=== PATIENT | female | born 1945 | race African-American/Black ===

== ENCOUNTER 2018-11-20 06:03 | Observation (INO) | payer BC, MEDICARE ==
[2018-11-19 13:22] LABS: BASOPHILS # (AUTO) 0.1 (0.0-0.1); BASOPHILS % 0.7 % (0.0-1.0); EOSINOPHILS # (AUTO) 0.2 (0.0-0.4); EOSINOPHILS % 2.7 % (0.0-6.0); HEMATOCRIT 39.1 % (34.2-44.1); HEMOGLOBIN 12.6 g/dL (12.0-16.0); LYMPHOCYTES # (AUTO) 2.1 (1.0-3.2); LYMPHOCYTES % 28.9 % (18.0-39.1); MEAN CORPUSCULAR HEMOGLOBIN 27.8 pg (28-32); MEAN CORPUSCULAR HGB CONC 32.2 g/dL (31-35); MEAN CORPUSCULAR VOLUME 86.3 fL (81-99); MONOCYTES # (AUTO) 0.9 (0.2-0.8); MONOCYTES % 12.1 % (4.4-11.3); NEUTROPHILS # (AUTO) 4.1 (2.1-6.9); NEUTROPHILS % 55.3 % (38.7-80.0); PLATELET COUNT 278 x10e3/uL (140-360); RED BLOOD COUNT 4.53 x10e6/uL (3.6-5.1); RED CELL DISTRIBUTION WIDTH 14.6 % (11.7-14.4)
[2018-11-19 13:40] LABS: ANION GAP 12.7 mmol/L (8-16); CALCIUM 9.7 mg/dL (8.4-10.2); CREATININE, SERUM 0.93 mg/dL (0.57-1.11); POTASSIUM 3.7 mmol/L (3.5-5.1)
--- NOTE | 2018-11-19 14:08 | Diagnostic Imaging Report ---
EXAMINATION: CHEST 2 VIEWS INDICATION: Pre-operative COMPARISON: None FINDINGS: TUBES and LINES: None. LUNGS: The lung volumes are normal. No focal consolidation or pulmonary edema. PLEURA: No pleural effusion or pneumothorax. HEART AND MEDIASTINUM: The cardiomediastinal silhouette is normal in size and contour. BONES AND SOFT TISSUES: No acute fracture or dislocation. Mild degenerative changes of the visualized spine. UPPER ABDOMEN: No free air under the diaphragm. IMPRESSION: No focal pneumonia or pulmonary edema. Signed by: Ilana Barnes MD on 11/19/2018 2:05 PM
[~2018-11-20] VITALS: Ht 160 cm; Wt 99.8 kg
[~2018-11-20 06:03] MED LIST: AMLODIPINE BESY10 MG PO; CRESTOR5 MG PO; FUROSEMIDE40 MG PO; KLOR-CON 1010 MEQ PO; LABETALOL HCL100 MG PO; LASIX40 MG PO; LOSARTAN POTAS100 MG PO; METFORMIN HCL500 MG PO; OMEPRAZOLE40 MG PO
[2018-11-20] MEDS ORDERED: TRANEXAMIC ACID 1,000 MG/10 ML ML ONE (06:13)
[2018-11-20] MEDS ORDERED: SODIUM CHLORIDE 0.9% 500ML 500 ML ONE (06:13)
[2018-11-20] MEDS ORDERED: VANCOMYCIN HCL 1,000 MG ONE (06:13)
[2018-11-20] MEDS ORDERED: BACITRACIN 50,000 UNIT VIAL ONE (06:14)
--- OUTSIDE RECORDS SUMMARY | 2018-11-20 06:33 | XMS REPORT ---
[facility] Address Unknown Phone Unavailable Care Team Providers Care Tube Balancer Name Role Phone LANDON KARTIK Unavailable Unavailable Payers Payer Name Policy Type Policy Number Effective Date Expiration Date Problems This patient has no known problems. Allergies, Adverse Reactions, Alerts Allergy Name Allergy Type Status Severity Reaction(s) Onset Date Inactive Date Treating Clinician Comments Penicillins DA Active MO 2018-10-20 00:00:00 Medications This patient has no known medications. Results Test Description Test Time Test Comments Text Results Atomic Results Result Comments CHEST 2 VIEWS 2018-11-19 14:04:00 [place] [address] Patient Name: AXEL JULIAN MR #: [id number] : 1945 Age/Sex: 73/F Req #: [id number] Adm Physician: Ordered by: KARTIK NAVARRETE MD Report #: [id number] Location: OR Room/Bed: Procedure: [id number] DX/CHEST 2 VIEWS Exam Date: 11/19/18 Exam Time: 1320 REPORT STATUS: Signed EXAMINATION: CHEST 2 VIEWS INDICATION: Pre-operative COMPARISON: None FINDINGS: TUBES and LINES: None. LUNGS: The lung volumes are normal. No focal consolidation or pulmonary edema. PLEURA: No pleural effusion or pneumothorax. HEART AND MEDIASTINUM: The cardiomediastinal silhouette is normal in size and contour. BONES AND SOFT TISSUES: No acute fracture or dislocation. Mild degenerative changes of the visualized spine. UPPER ABDOMEN: No free air under the diaphragm. IMPRESSION: No focal pneumonia or pulmonary edema. Signed by: Shruthi Anne MD on 11/19/2018 2:05 PM Dictated By: SHRUTHI ANNE MD 04 Transcribed By: JUAN on 11/19/181404 COPY TO: KARTIK NAVARRETE MD - XR CHEST 1 V 2018-10-20 21:51:00 Name: AXEL JULIAN [employer] [facility] : 1945 Age/S:73 /F [address] [place] [address] Unit#:[id number] Loc: [place] [address] Phys: Daniel Sparks MD Dis Date: PHONE #: [phone] Status: REG ER FAX #: [phone] Exam Date: 10/20/2018 Reason: abd pain EXAMS: CPT CODE: [id number] XR CHEST 1 V 03095 HISTORY: Vomiting. COMPARISON: None available. No acute infiltrates, effusion or congestion is noted. Suboptimal inspiration with dependent changes. Mild cardiomegaly. IMPRESSION: No acute infiltrates, effusion or congestion. at 2151 Reported and signed by: Amrik Candelaria M.D. CC: Daniel Sparks MD Technologist: FACUNDO STALLINGS CT Trnscrpt Data: 10/20/2018 (2150) [email or web address] Orig Print D/T: S: 10/20/2018 (2153) PAGE 1 Signed Report - CT ABD PELVIS W/CONT 2018-10-20 21:50:00 Name: JAMESAXEL [employer] [facility] : 1945 Age/S: 73 / F [facility] [place][note 2][address] [facility] Unit #: [id number] Loc: [place] [address] Phys: Daniel Sparks MD Acct: [id number] Dis Date: Status: REG ER PHONE #: [phone] Exam Date: 10/20/20182129 FAX #: [phone] Reason: abd pain/distension EXAMS: CPT CODE: [id number] CT ABD PELVIS W/CONT 18684 HISTORY: Abdominal pain and distention and vomiting. COMPARISON: None available. CT abdomen and pelvis with IV contrast: 100 mL of Isovue-370. Automated exposure control. CT of abdomen: The lung bases are clear. Dependent changes. The liver is enhancing homogeneously. Patient is post cholecystectomy. Areas of fatty infiltration. The liver is measuring 17.8 cm in length. The spleen is not enlarged. Accessory spleen. The stomach distended incompletely however it is within normal limits. Pancreas is enhancing homogeneously. Unremarkable adrenals. Kidneys are free from hydroureteronephrosis. Homogeneous enhancement. Bilateral excretion. No pathologic adenopathy. Well-opacified abdominal and pelvic vasculature with mild atherosclerotic change. No bowel obstruction. Mild fluid distention of the small bowel is nonspecific finding. Large bowel is unremarkable. No CT pelvis: Appendix is now visible with certa inty but no inflammatory changes. Calcified lymph nodes in the both lower quadrant. Mild sigmoid diverticulosis without diverticulitis. Urinary bladder is within normal limits. Patient is post hysterectomy. Phleboliths. No free fluid or free air or abscess. The subcutaneous tissues and musculature are normal in appearance. No lytic or blastic lesions noted within the bony skeleton. DJD. IMPRESSION: Mild small bowel distention proximally without inflammatory change. This suggests ileus. This is not an obstructive pattern. Mild sigmoid diverticulosis without diverticulitis. Appendix is not visible with certainty but no inflammation. PAGE 1 Signed Report (CONTINUED) [facility] 1945 Age/S: 73 / F [address] [facility] Unit #: [id number] Loc: [place] [address] Phys: Daniel Sparks MD Acct: [id number] Dis Date: Status: REG ER PHONE #: [phone] Exam Date: 10/20/20182129 FAX #: [phone] Reason: abd pain/distension EXAMS: CPT CODE: [id number] CT ABD PELVIS W/CONT 38874 <Continued> No hydroureteronephrosis with unremarkable urinary bladder. No free fluid or free air or abscess. at 2150 Reported and signed by: Amrik Candelaria M.D. CC: Daniel Sparks MD Technologist:FACUNDO HURD CTDI: DLP: Trnscb Date/Time: 10/20/2018 (2149) [email or web address] Orig Print D/T: S: 10/20/2018 (2152) PAGE 2 Signed Report B-TYPE NATRIURETIC PEPTIDE 2018-10-20 21:15:00 B-TYPE NATRIURETIC PEPTIDE (test code=BNP) 39.5 pg/mL 0-100 COMPREHENSIVE METABOLIC [id number] 21:14:00* Test Item Value Reference Range Comments SODIUM (test code=NA) 140 mmol/L 136-145 POTASSIUM (test code=K) 3.7 mmol/L 3.5-5.1 CHLORIDE (test code=CL) 103 mmol/L 101-109 CARBON DIOXIDE (test code=CO2) 29.4 mmol/L 21-32 ANION GAP (test code=GAP) 11 mmol/L 10-20 GLUCOSE (test code=GLU) 144 mg/dL 74-106 BLOOD UREA NITROGEN (test code=BUN) 10 mg/dL 3-21 CREATININE (test code=CREAT) 1.04 mg/dL 0.55-1.3 BUN/CREATININE RATIO (test code=BUN/CREA) 9.6 10-20 TOTAL PROTEIN (test code=PROT) 7.3 g/dL 6.5-8.4 ALBUMIN (test code=ALB) 3.5 g/dL 3.4-4.8 GLOBULIN (test code=GLOB) 3.8 G/DL 1-10 ALBUMIN/GLOBULIN RATIO (test code=A/G) 0.92 RATIO 0.75-1.50 CALCIUM (test code=CA) 8.2 mg/dL 8.4-10.2 BILIRUBIN TOTAL (test code=BILT) 0.40 mg/dL 0.0-1.0 SGOT/AST (test code=AST) 40 U/L 6-32 SGPT/ALT (test code=ALT) 49 U/L 12-78 Note: Change in REFERENCE RANGE due to new reagent method. ALKALINE PHOSPHATASE TOTAL (test code=ALKP) 60 U/L 38-126 [id number] 21:14:00* Test Item Value Reference Range Comments LIPASE (test code=LIP) 118 U/L 128-270 [id number] 21:14:00* Test Item Value Reference Range Comments TROPONIN-I (test code=TROPI) <0.015 ng/mL 0.00-0.056 URINALYSIS [id number] 21:04:00* Test Item Value Reference Range Comments UA COLOR (test code=COLU) YELLOW YELLOW UA APPEARANCE (test code=APPU) CLEAR CLEAR UA GLUCOSE DIPSTICK (test code=DGLUU) norm mg/dL NEGATIVE UA BILIRUBIN DIPSTICK (test code=BILU) NEGATIVE mg/dL NEGATIVE UA KETONE DIPSTICK (test code=KETU) neg mg/dL NEGATIVE UA SPECIFIC GRAVITY (test code=SGU) 1.015 1.001-1.035 UA BLOOD DIPSTICK (test code=GARETH) neg Servando/uL NEGATIVE UA PH DIPSTICK (test code=KRYSTEN) 6.0 5.0-8.0 UA PROTEIN DIPSTICK (test code=PROU) 30 (1+) mg/dL Neg-15 UA UROBILINIOGEN DIPSTICK (test code=URO) norm mg/dL 0.0-0.2 UA NITRITE DIPSTICK (test code=YAMILKA) NEGATIVE NEGATIVE UA LEUKOCYTE ESTERASE DIPSTICK (test code=LEUU) NEGATIVE uL NEGATIVE UA WBC (test code=WBCU) 0-5 per HPF 0-5 UA RBC (test code=RBCU) NONE SEEN per HPF 0-5 UA EPITHELIAL CELLS (test code=EPIU) Few (2-5/hpf) per HPF Few UA BACTERIA (test code=BACU) TRACE per HPF NONE UA MUCUS (test code=MUCU) FEW per LPF NONE-FEW URINALYSIS W/O [id number] 21:04:00* Test Item Value Reference Range Comments UA LEUKOCYTE ESTERASE W REFLEX (test code=LEUUR) NEGATIVE NEGATIVE URINALYSIS [id number] 21:01:00* Test Item Value Reference Range Comments UA COLOR (test code=COLU) YELLOW YELLOW UA APPEARANCE (test code=APPU) CLEAR CLEAR UA GLUCOSE DIPSTICK (test code=DGLUU) norm mg/dL NEGATIVE UA BILIRUBIN DIPSTICK (test code=BILU) NEGATIVE mg/dL NEGATIVE UA KETONE DIPSTICK (test code=KETU) neg mg/dL NEGATIVE UA SPECIFIC GRAVITY (test code=SGU) 1.015 1.001-1.035 UA BLOOD DIPSTICK (test code=GARETH) neg Servando/uL NEGATIVE UA PH DIPSTICK (test code=KRYSTEN) 6.0 5.0-8.0 UA PROTEIN DIPSTICK (test code=PROU) 30 (1+) mg/dL Neg-15 UA UROBILINIOGEN DIPSTICK (test code=URO) norm mg/dL 0.0-0.2 UA NITRITE DIPSTICK (test code=YAMILKA) NEGATIVE NEGATIVE UA LEUKOCYTE ESTERASE DIPSTICK (test code=LEUU) uL NEGATIVE UA WBC (test code=WBCU) per HPF 0-5 UA RBC (test code=RBCU) per HPF 0-5 UA EPITHELIAL CELLS (test code=EPIU) per HPF Few UA BACTERIA (test code=BACU) per HPF NONE URINALYSIS W/O [id number] 21:01:00* Test Item Value Reference Range Comments UA LEUKOCYTE ESTERASE W REFLEX (test code=LEUUR) NEGATIVE URINALYSIS [id number] 21:01:00* Test Item Value Reference Range Comments UA COLOR (test code=COLU) YELLOW YELLOW UA APPEARANCE (test code=APPU) CLEAR CLEAR UA GLUCOSE DIPSTICK (test code=DGLUU) norm mg/dL NEGATIVE UA BILIRUBIN DIPSTICK (test code=BILU) NEGATIVE mg/dL NEGATIVE UA KETONE DIPSTICK (test code=KETU) neg mg/dL NEGATIVE UA SPECIFIC GRAVITY (test code=SGU) 1.015 1.001-1.035 UA BLOOD DIPSTICK (test code=GARETH) neg Servando/uL NEGATIVE UA PH DIPSTICK (test code=KRYSTEN) 6.0 5.0-8.0 UA PROTEIN DIPSTICK (test code=PROU) 30 (1+) mg/dL Neg-15 UA UROBILINIOGEN DIPSTICK (test code=URO) norm mg/dL 0.0-0.2 UA NITRITE DIPSTICK (test code=YAMILKA) NEGATIVE NEGATIVE UA LEUKOCYTE ESTERASE DIPSTICK (test code=LEUU) uL NEGATIVE UA WBC (test code=WBCU) per HPF 0-5 UA RBC (test code=RBCU) per HPF 0-5 UA EPITHELIAL CELLS (test code=EPIU) per HPF Few UA BACTERIA (test code=BACU) per HPF NONE URINALYSIS W/O [id number] 21:01:00* Test Item Value Reference Range Comments UA LEUKOCYTE ESTERASE W REFLEX (test code=LEUUR) NEGATIVE CBC W/AUTO [id number] 20:57:00* Test Item Value Reference Range Comments WHITE BLOOD CELL (test code=WBC) 12.4 K/mm3 4.5-12.5 RED BLOOD CELL (test code=RBC) 4.89 mill/mm3 3.7-5.2 HEMOGLOBIN (test code=HGB) 13.3 gram/dL 11.5-15.5 HEMATOCRIT (test code=HCT) 41.8 % 36.0-46.0 MEAN CELL VOLUME (test code=MCV) 85.5 fL 80-98 MEAN CELL HGB (test code=MCH) 27.2 picogram 27.0-33.0 MEAN CELL HGB CONCETRATION (test code=MCHC) 31.8 gram/dL 33.0-36.0 RED CELL DISTRIBUTION WIDTH (test code=RDW) 14.1 % 11.6-16.2 RED CELL DISTRIBUTION WIDTH SD (test code=RDW-SD) 44.5 fL 37.0-51.0 PLATELET COUNT (test code=PLT) 300 K/mm3 150-450 MEAN PLATELET VOLUME (test code=MPV) 10.0 fL 6.7-11.0 NEUTROPHIL % (test code=NT%) 79.5 % 39.0-69.0 LYMPHOCYTE % (test code=LY%) 11.1 % 25.0-55.0 MONOCYTE % (test code=MO%) 7.1 % 0.0-10.0 EOSINOPHIL % (test code=EO%) 1.9 % 0.0-5.0 BASOPHIL % (test code=BA%) 0.2 % 0.0-1.0 NEUTROPHIL # (test code=NT#) 9.88 K/mm3 1.8-7.7 LYMPHOCYTE # (test code=LY#) 1.38 K/mm3 1.0-5.0 MONOCYTE # (test code=MO#) 0.88 K/mm3 0-0.8 EOSINOPHIL # (test code=EO#) 0.24 K/mm3 0.0-0.5 BASOPHIL # (test code=BA#) 0.03 K/mm3 0.0-0.2 MANUAL DIFF REQUIRED (test code=MDIFF) NO SCR MAMM BILATERAL MILANA CAD [id number] 15:05:19 - SCR MAMM BILATERAL MILANA CAD DIGITALBILATERAL DIGITAL SCREENING MAMMOGRAM 3D/2D WITH CAD: 08/15/2018CLINICAL: Asymptomatic. Digital breast tomosynthesis was performed in addition to routine CC and MLO views. Current mammographic images were evaluated by either a [employer] M-Vu or a [employer] ImageChecker CAD (computer aided detection system). Comparison is made to exams dated 08/10/2017 mammogram, mammogram, and 07/14/2015 mammogram - [facility]-. There are scattered fibroglandular tissues in both breasts. No suspicious mass, archi tectural distortion, malignant type calcification, or lymph node abnormality det ected. Breast architecture is stable compared to prior exams.IMPRESSION: NEGATI VEThere is no mammographic evidence of malignancy. Resume annual screening mammo graphy in one year. Sly Montanez M.D. ss/penrad:08/15/2018 15:05: 19 Tractor Operator Helper: Ana Julian , [facility]-letter sent: BIRADS 1-2 Normal Mammogram BI-RADS: 1 Negative
[2018-11-20] MEDS ORDERED: GABAPENTIN 300 MG CAP ONE (07:04)
[2018-11-20] MEDS ORDERED: CELECOXIB 200 MG CAP ONE (07:04)
[2018-11-20] MEDS ORDERED: DEXAMETHASONE SOD PHOS 10 MG/1 ML VIAL ONE (07:04)
[2018-11-20] MEDS ORDERED: VANCOMYCIN 1GM/NS 250 ML 250 ML ONE (07:04)
[2018-11-20] MEDS ORDERED: ROPIVACAINE 246.25 MG, EPINEPHRINE HCL 1:1000 1ML 0.5 MG, CLONIDINE HCL 0.08 MG, KETORO... INJ ONE ×5 (07:30)
[2018-11-20] MEDS: SODIUM CHLORIDE 0.9% 1000ML 1,000 ML IV SCH ×2 (10:40→18:21)
[2018-11-20] MEDS ORDERED: PROMETHAZINE HCL (IM) 25 MG/ML VIAL IM PRN (10:45)
[2018-11-20] MEDS ORDERED: ACETAMINOPHEN 650 MG SUPP PR PRN (10:45)
[2018-11-20] MEDS ORDERED: HYDROCODONE/APAP 7.5MG-325MG 1 EA TAB PO PRN (10:45)
[2018-11-20] MEDS ORDERED: DOCUSATE SODIUM 100 MG CAP PO PRN (10:45)
[2018-11-20] MEDS ORDERED: KETOROLAC TROMETHAMINE 30 MG/ML VIAL IV PRN (10:45)
[2018-11-20] MEDS ORDERED: ONDANSETRON HCL INJ 2MG/ML 2ML 2 MG/ML VIAL IV PRN (10:45)
[2018-11-20] MEDS ORDERED: DIPHENHYDRAMINE HCL INJ 50 MG/ML VIAL IM/IV PRN (10:45)
[2018-11-20] MEDS ORDERED: HYDROMORPHONE 2MG/ML 2 MG/ML ML ONE (11:23)
[2018-11-20] MEDS: ACETAMINOPHEN 1000 MG/100 ML IV SCH ×3 (12:00→23:21)
--- NOTE | 2018-11-20 12:19 | Diagnostic Imaging Report ---
Knee radiograph, 2 views. History: Findings: Postoperative findings of right knee arthroplasty with prosthetic components in anatomic alignment. No fracture. Overlying subcutaneous emphysema and surgical skin caleb are present. Small joint effusion. IMPRESSION: Status post right knee replacement in anatomic position. Signed by: Ilana Barnes MD on 11/20/2018 12:16 PM
--- NOTE | 2018-11-20 13:16 | Operative Report ---
DATE OF PROCEDURE: 11/20/2018 SURGEON: Sanjay Goldman MD REFRIGERATION OPERATOR: Noah Soto PA-C. PREOPERATIVE DIAGNOSIS: Osteoarthritis right knee. POSTOPERATIVE DIAGNOSIS: Osteoarthritis right knee. PROCEDURE: Right total knee arthroplasty * added complexity secondary to BMI of 40. INDICATIONS: The patient is a 73-year-old lady, who has advanced osteoarthritis of her right knee. She has failed conservative management and would like to proceed with a right total knee replacement. The risks and benefits have been explained. The added potential for problems due to her body mass index of 40 was explained. She states she understands and wishes to proceed. PROCEDURE IN DETAIL: The patient was brought to the operating room and placed under general anesthetic. She received prophylactic antibiotics, a regional block and tranexamic acid in the holding area. Her right lower extremity was prepped and draped in a sterile manner. A preoperative time-out was performed. The extremity was exsanguinated and a proximal tourniquet was inflated to 300 mmHg. An anterior approach with a medial parapatellar arthrotomy was performed. Clear synovial fluid was removed from the joint. A slightly more extensile incision was necessary. Dense subcutaneous adipose tissue was encountered. Soft tissue releases were performed to bring the knee up into flexion with the patella everted. This was quite challenging due to the altered surgical field. Meniscal remnants and marginal osteophytes were removed. The anterior cruciate ligament was removed. A [employer] knee system was used. An extramedullary cutting guide was used to resect the proximal tibia. The tibial base plate was a size #4. The central fin punch was impacted and attention was directed towards the distal femur. An intramedullary cutting guide was used to resect the distal femur in 6 degrees of valgus and rotation referencing off a combination of landmarks including Whitesides line, the epicondylar axis and the posterior condyles. The femoral component was sized at a #6 component. Anterior and posterior cuts were made. Trial reduction was performed. A 9 mm ultracongruent tibial insert provided appropriate soft tissue balancing in flexion and extension. The patella was resurfaced with a 29 mm x 7.5 mm patellar button. The thickness of the patella was checked before and after and was right around 18 mm. Patellar tracking was concentric. The trial implants were then all removed. The knee was thoroughly irrigated with a shower tip pulsatile lavage. A 100 mL premixed pericapsular ERIC injection was placed into the surrounding soft tissue. The knee was further irrigated and the components were cemented into place using a single mix of Palacos cement preloaded with antibiotics. Care was taken to remove extravasated cement. It was very difficult to reach around lateral compartment. The knee was further irrigated while the cement cured. 500 mg of vancomycin powder was then placed into the joint. The arthrotomy was closed with interrupted #1 Ethibond. The skin was closed with subcuticular Vicryl and caleb. A sterile Aquacel bandage and an Elver wrap were applied. She was extubated and transported to the recovery room in stable condition. Blood loss was minimal. All needle and sponge counts were correct. Sanjay Goldman MD DR/DAVID /[id number]
[2018-11-20 13:52] VITALS: BP 128/74
[2018-11-20] MEDS ORDERED: LIDOCAINE 2% /EPINEPHRINE 20 ML SDV INJ ONE (14:53)
[2018-11-20] MEDS ORDERED: ROPIVACAINE 0.5% 5 MG/ML 30 ML SDV ONE (14:53)
[2018-11-20] MEDS ORDERED: ROCURONIUM BROMIDE 10 MG/ML 5ML VIAL ONE (15:00)
[2018-11-20] MEDS ORDERED: GLYCOPYRROLATE INJ 1MG/ 5 ML SYR ONE (15:00)
[2018-11-20] MEDS ORDERED: PROPOFOL IV EMULSION 10 MG/ML 20 ML VIAL ONE (15:00)
[2018-11-20] MEDS ORDERED: NEOSTIGMINE 5 MG/5ML SYR ONE (15:00)
[2018-11-20] MEDS ORDERED: DEXAMETHASONE SOD PHOS INJ 4 MG/ML VIAL ONE (15:00)
[2018-11-20] MEDS ORDERED: ACETAMINOPHEN 1000 MG/100 ML IV ONE (15:00)
[2018-11-20] MEDS ORDERED: LIDOCAINE HCL 2% LOCAL INJ 5 ML SDV VIAL INJ ONE (15:00)
[2018-11-20] MEDS ORDERED: DESFLURANE 240 ML BTL INH ONE (15:00)
[2018-11-20 15:20] VITALS: BP 128/74
[2018-11-20 16:57] VITALS: BP 128/74
[2018-11-20 17:06] VITALS: BP 111/53
[2018-11-20] MEDS: CELECOXIB 100 MG CAP PO SCH (17:24)
[2018-11-20] MEDS: ASPIRIN 325 MG TAB PO SCH (17:24)
[2018-11-20] MEDS ORDERED: FENTANYL CITRATE/PF 100MCG/2 ML INJ ONE (17:53)
[2018-11-20] MEDS ORDERED: MIDAZOLAM HCL 2 MG/2 ML VIAL ONE (17:53)
[2018-11-20] MEDS: VANCOMYCIN 1GM/NS 250 ML 250 ML IV SCH (18:21)
--- NOTE | 2018-11-20 18:32 | Consultation ---
DATE OF CONSULTATION: 11/20/2018 REASON FOR CONSULTATION: Medical management. HISTORY OF PRESENT ILLNESS: This is a 73-year-old woman, who underwent successful right total knee replacement today. Surgery was performed by Dr. Sanjay Goldman. The patient voiced no complaints. The patient did participate in physical therapy postoperatively, but had an episode of lightheadedness, dizziness and thus therapy was discontinued. The patient had blood work done on November 19, 2018, she was found to have a hemoglobin of 12.6 g/dL. On November 19, 2018, patient had a BUN, creatinine of 9 and 0.93 respectively. REVIEW OF SYSTEMS: GENERAL: Weight is stable. No fever or chills. HEENT: No headaches. No vision changes. CARDIOVASCULAR: No chest pain. No shortness of breath or cough. GI: No nausea, vomiting, or constipation. : No UTI or overactive bladder symptoms. Pabon catheter has been removed. NEUROMUSCULAR: States the pain in her right knee is well control. ALLERGIES: PENICILLIN. PAST SURGICAL HISTORY: 1. Cholecystectomy. 2. Right knee replacement today. FAMILY HISTORY: Noncontributory. SOCIAL HISTORY: This woman is , lives with her . No history of tobacco or alcohol use. PAST MEDICAL HISTORY: 1. Hypertensive heart disease. 2. Hyperlipidemia. 3. Type 2 diagnosis. 4. Obesity. 5. GERD. MEDICATIONS: 1. Amlodipine 10 mg at bedtime. 2. Furosemide 40 mg daily. 3. Labetalol 100 mg b.i.d. 4. Losartan 100 mg daily. 5. Metformin 500 mg b.i.d. 6. Omeprazole 20 mg daily. 7. Potassium chloride 10 mEq daily. 8. Rosuvastatin 5 mg at bedtime. PHYSICAL EXAMINATION: GENERAL: She is awake, alert, fluent, distress free, pleasant, cooperative with exam. VITAL SIGNS: Blood pressure is 128/74, pulse 58, respiratory rate 16, temperature 95.8, oxygen saturation 94% on 2 L of oxygen. Height 5 feet 3 inches, weighs 220 pounds, BMI 39. INTEGUMENT: Skin is warm and dry. No pallor, jaundice or diaphoresis. HEENT: Anicteric sclerae. Moist mucous membranes. NECK: Supple. CARDIOVASCULAR: Distant heart sounds. Regular rate and rhythm. LUNGS: No rales. No rhonchi. ABDOMEN: Obese, benign. EXTREMITIES: The patient's right knee is currently dressed. No edema in legs. NEUROLOGIC: Intact. DIAGNOSES: 1. Status post right total knee replacement. 2. Hypertensive heart disease. 3. Type 2 diabetes. 4. Obesity, BMI of 39. PLAN: 1. Mobilize therapy. 2. Encourage incentive spirometer use to prevent atelectasis. 3. Blood pressure control. 4. Blood glucose control. 5. Pain control. I would like to thank Dr. Goldman for his generous consult. I spent 30 minutes in the care of the patient. MD ISMAEL Shearer/DAVID /[id number] MTDD
--- NOTE | 2018-11-20 19:00 | NUR ---
RECEIVED PATIENT IN REPORT. PATIENT CURRENTLY ON CPM, TO COME OFF AT 2100. PAIN REPORTED AT 3. NO S&S OF DISTRESS NOTED. R HAND 20G IV ASYMPTOMATIC, INTACT, AND PATENT. BED LOCKED IN LOWEST POSITION, SIDE RAILS UPX2, CALL LIGHT IN REACH.
--- NOTE | 2018-11-20 19:00 | NUR ---
Handoff report to oncoming nurse, made aware patient on CPM from 7pm -9pm, nurse verbalized understanding.
[2018-11-20 19:20] VITALS: BP 167/68
[2018-11-20 20:00] VITALS: BP 167/68
[2018-11-20] MEDS ORDERED: AMLODIPINE BESYLATE 10 MG TAB PO SCH (21:00)
[2018-11-20] MEDS ORDERED: ZOLPIDEM TARTRATE 5 MG TAB PO PRN (21:00)
[2018-11-20] MEDS ORDERED: SIMVASTATIN 20 MG TAB PO SCH (21:00)
[2018-11-21] VITALS: BP 128/60
[2018-11-21 04:00] VITALS: BP 122/58
[2018-11-21] MEDS: HYDROCODONE/APAP 5MG-325MG TAB PO PRN ×2 (04:23→13:31)
[2018-11-21] MEDS: ACETAMINOPHEN 1000 MG/100 ML IV SCH (06:15)
[2018-11-21 06:16] LABS: BASOPHILS % 0.1 % (0.0-1.0); HEMATOCRIT 36.4 % (34.2-44.1); HEMOGLOBIN 11.6 g/dL (12.0-16.0); LYMPHOCYTES # (AUTO) 1.3 (1.0-3.2); LYMPHOCYTES % 9.4 % (18.0-39.1); MEAN CORPUSCULAR HEMOGLOBIN 27.2 pg (28-32); MEAN CORPUSCULAR HGB CONC 31.9 g/dL (31-35); MEAN CORPUSCULAR VOLUME 85.4 fL (81-99); MONOCYTES # (AUTO) 1.4 (0.2-0.8); MONOCYTES % 10.4 % (4.4-11.3); NEUTROPHILS # (AUTO) 10.8 (2.1-6.9); NEUTROPHILS % 79.7 % (38.7-80.0); PLATELET COUNT 251 x10e3/uL (140-360); RED BLOOD COUNT 4.26 x10e6/uL (3.6-5.1); RED CELL DISTRIBUTION WIDTH 14.5 % (11.7-14.4)
[2018-11-21 06:36] LABS: ALBUMIN 3.1 g/dL (3.5-5.0); CALCIUM 8.9 mg/dL (8.4-10.2); CREATININE, SERUM 1.02 mg/dL (0.57-1.11)
[2018-11-21] MEDS: VANCOMYCIN 1GM/NS 250 ML 250 ML IV SCH (06:43)
[2018-11-21] MEDS: SODIUM CHLORIDE 0.9% 1000ML 1,000 ML IV SCH (06:43)
--- NOTE | 2018-11-21 07:10 | NUR ---
PT RESTING IN BED AA0X3. PT C/O OF PAIN TO RIGHT KNEE THAT IS TOLERABLE AT THIS TIME 5/10 PT IS ON CPM AT 50 TOLERATING WELL. DRESSING TO RIGHT KNEE IS DRY AND INTACT. (SMALL DRY BLOOD NOTED BELOW DRESSING. NO ACTIVE BLEEDING NOTED) COMPRESSION STOCKING ON BILATERALLY IV TO THE LEFT HAND 20 WITH VANC RUNNING. SITE IS CLEAN AND DRY WILL CONTINUE TO MONITOR AT THIS TIME SIDE RAILSX2, BED WHEELS LOCKED, CALL LIGHT IS WITHIN EASY REACH, INSTRUCTED TO CALL FOR ASSISTANCE IF NEEDED AND WHEN GETTING UP
[2018-11-21] MEDS ORDERED: METFORMIN HCL 500 MG TAB PO SCH (08:00)
[2018-11-21 08:47] VITALS: BP 170/78
[2018-11-21] MEDS ORDERED: ASPIRIN81 MG PO (08:48)
[2018-11-21 08:50] VITALS: BP 170/78
[2018-11-21] MEDS ORDERED: FUROSEMIDE 40 MG TAB PO SCH (09:00)
[2018-11-21] MEDS ORDERED: LOSARTAN POTASSIUM 100 MG TAB PO SCH (09:00)
[2018-11-21] MEDS ORDERED: POTASSIUM CHLORIDE 10MEQ EA PO SCH (09:00)
[2018-11-21] MEDS ORDERED: LABETALOL HCL 100 MG TAB PO SCH (09:00)
[2018-11-21] MEDS ORDERED: PANTOPRAZOLE SOD 40 MG TABEC PO SCH (09:00)
[2018-11-21] MEDS: ASPIRIN 325 MG TAB PO SCH (09:03)
[2018-11-21] MEDS: CELECOXIB 100 MG CAP PO SCH (09:04)
[2018-11-21] MEDS ORDERED: ONDANSETRON HCL 4 MG ORAL DISINTEGRATING TAB PO PRN (09:30)
--- NOTE | 2018-11-21 10:30 | NUR ---
PATIENT DME AND HOME HEALTH COMPANIES PRE-ARRANGED BY DR. NAVARRETE'S OFFICE. PATIENT WITH HOME HEALTH AND DME CONTACT INFORMATION. PATIENT AWARE TO CALL CM IF ANY PROBLEMS OCCUR WITHIN 3 DAYS POST- DISCHARGE. HOME HEALTH EXPLAINED IN DEPTH WITH SERVICES PROVIDED. PATIENT VERBALLY UNDERSTOOD AND SIGNED CHOICE LETTER. THE FOLLOWING HOME HEALTH AND DME COMPANY VERIFIED PATIENT IS ON SERVICE WITH THEM: [facility] (P) [phone] (F) [phone] CM CONFIRMED WITH MARYANN THAT PATIENT TO RECEIVE SERVICES MONDAY PER PATIENT REQUEST. DME PLUS SOLUTION : ([facility], CPM, 3-IN-1 COMMODE) (P) [phone] (F) [phone] CM SPOKE TO DAREN AND PATIENT; DME CONFIRMED DELIVERED.
[2018-11-21] MEDS ORDERED: ACETAMINOPHEN 1000 MG/100 ML IV PRN (10:45)
[2018-11-21 12:04] VITALS: BP 128/59
--- NOTE | 2018-11-21 13:30 | NUR ---
DISCHARGE INSTRUCTIONS AND PRESCRIPTIONS GIVEN PT VERBALIZED UNDERSTANDING IV DC PRESSURE DRESSING APPLIED AND TAPED PT IS READY FOR DC
--- NOTE | 2018-11-21 13:37 | NUR ---
PT OFF UNIT TO HOME VIA WHEEL CHAIR AT THIS TIME
[2018-11-21] MEDS ORDERED: CELECOXIB 200 MG CAP PO SCH (17:00)
[2019-01-31] MEDS ORDERED: ULTRAM50 MG PO (14:27)
== END 2018-11-21 13:37 | disposition home health service (06) ==
LOC: OR 06:03 → PACU V 10:46 → MED/SURG 13:42
PROVIDERS: ADMIT Specialist; ATTEND Specialist
DX: M17.11 Unilateral primary osteoarthritis, right knee (principal); E11.9 Type 2 diabetes mellitus without complications; K29.70 Gastritis, unspecified, without bleeding; Z90.49 Acquired absence of other specified parts of digestive tract; Z88.0 Allergy status to penicillin; Z82.49 Family history of ischemic heart disease and other diseases of the circulatory system; Z80.9 Family history of malignant neoplasm, unspecified; Z79.84 Long term (current) use of oral hypoglycemic drugs; F41.9 Anxiety disorder, unspecified; K21.9 Gastro-esophageal reflux disease without esophagitis; E66.9 Obesity, unspecified; Z68.39 Body mass index [BMI] 39.0-39.9, adult; I11.9 Hypertensive heart disease without heart failure; Z01.810 Encounter for preprocedural cardiovascular examination; Z01.812 Encounter for preprocedural laboratory examination; Z01.811 Encounter for preprocedural respiratory examination
CPT/HCPCS: 27447; 36415 ×3; 71046; 73560; 80048; 80053; 82948 ×2; 85025 ×2; 86850; 86900; 86920; 93005; 97116 ×2; 97161; 97530 ×2; C1713; G0378 ×2; J0131 ×2; J0171; J1100 ×2; J1170; J1885; J2001 ×2; J2250; J2704; J2795; J3010; J3370 ×3; J3490; J7030 ×2; J7040; S0164; J1200

== ENCOUNTER 2019-01-31 14:44 | Outpatient (RCR) | payer BC ==
[~2019-01-31 14:44] MED LIST changes: +ASPIRIN81 MG PO; +ULTRAM50 MG PO
== END 2019-02-04 ==
LOC: PT 14:44
PROVIDERS: ATTEND Specialist
DX: Z96.651 Presence of right artificial knee joint (principal); Z47.1 Aftercare following joint replacement surgery; M62.81 Muscle weakness (generalized); R26.9 Unspecified abnormalities of gait and mobility

== ENCOUNTER → 2019-02-05 | Day surgery (SDC) | payer BC ==
[2019-01-31 15:24] LABS: BASOPHILS # (AUTO) 0.1 (0.0-0.1); BASOPHILS % 0.7 % (0.0-1.0); EOSINOPHILS # (AUTO) 0.2 (0.0-0.4); EOSINOPHILS % 1.7 % (0.0-6.0); HEMATOCRIT 35.9 % (34.2-44.1); HEMOGLOBIN 11.4 g/dL (12.0-16.0); LYMPHOCYTES # (AUTO) 1.8 (1.0-3.2); MEAN CORPUSCULAR HGB CONC 31.8 g/dL (31-35); MEAN CORPUSCULAR VOLUME 85.1 fL (81-99); MONOCYTES # (AUTO) 0.8 (0.2-0.8); MONOCYTES % 9.5 % (4.4-11.3); NEUTROPHILS % 67.8 % (38.7-80.0); PLATELET COUNT 317 x10e3/uL (140-360); RED BLOOD COUNT 4.22 x10e6/uL (3.6-5.1); RED CELL DISTRIBUTION WIDTH 13.4 % (11.7-14.4)
[2019-01-31 15:40] LABS: ANION GAP 14.5 mmol/L (8-16); CALCIUM 10.6 mg/dL (8.4-10.2); CREATININE, SERUM 1.37 mg/dL (0.57-1.11); POTASSIUM 3.5 mmol/L (3.5-5.1)
[~2019-02-05] MED LIST changes: +FENTANYL CITRATE/PF 100MCG/2 ML INJ ONE; +LIDOCAINE HCL 2% LOCAL INJ 5 ML SDV VIAL INJ ONE; +MIDAZOLAM HCL 2 MG/2 ML VIAL ONE; +PROPOFOL IV EMULSION 10 MG/ML 20 ML VIAL ONE
[2019-02-05 13:25] VITALS: BP 165/86
--- NOTE | 2019-02-05 18:55 | Operative Report ---
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 PROCEDURE: Manipulation under anesthesia, right total knee arthroplasty. INDICATIONS: The patient is a 73-year-old lady, who is approaching 2 months status post a right knee replacement. She has had trouble regaining her range of motion. Her clinic exam shows roughly -3 degrees to 70 degrees. We have discussed the findings and options, and I have offered a manipulation under anesthesia. The importance of her ongoing physical therapy was stressed. She stated she understood and wished to proceed. PROCEDURE IN DETAIL: The patient was brought to the operating room and placed under general anesthetic. Her right knee was carefully manipulated. There were some palpable release of suprapatellar scar tissue. I was able to get her knee flexed to about 90 degrees. This required a fair bit of pressure. Because of her age, I was reluctant to try to push too much harder. She was transported to the recovery room in stable condition. There was no blood loss, needle or sponge counts. Sanjay Goldman MD DR/DAVID /[id number]
== END | disposition home or self-care (01) ==
LOC: OR 09:37
PROVIDERS: ATTEND Specialist
DX: M24.661 Ankylosis, right knee (principal); Z96.651 Presence of right artificial knee joint; E11.9 Type 2 diabetes mellitus without complications; I10 Essential (primary) hypertension; K21.9 Gastro-esophageal reflux disease without esophagitis; Z88.0 Allergy status to penicillin; Z01.812 Encounter for preprocedural laboratory examination; Z79.84 Long term (current) use of oral hypoglycemic drugs; Z79.82 Long term (current) use of aspirin; Z68.39 Body mass index [BMI] 39.0-39.9, adult
CPT/HCPCS: 27570; 36415 ×2; 80048; 82948; 85025; J2001; J2250; J2704; J3010

== ENCOUNTER 2019-03-06 09:32 | Outpatient (RCR) | payer BC ==
[~2019-03-06 09:32] MED LIST changes: -FENTANYL CITRATE/PF 100MCG/2 ML INJ ONE; +IOPAMIDOL 200 MG/ML 20 ML VIAL IT ONE; -LIDOCAINE HCL 2% LOCAL INJ 5 ML SDV VIAL INJ ONE; -MIDAZOLAM HCL 2 MG/2 ML VIAL ONE; -PROPOFOL IV EMULSION 10 MG/ML 20 ML VIAL ONE
== END 2019-03-07 ==
LOC: PT 09:32
PROVIDERS: ATTEND Specialist
DX: Z96.651 Presence of right artificial knee joint (principal); Z47.1 Aftercare following joint replacement surgery; M25.561 Pain in right knee; M25.661 Stiffness of right knee, not elsewhere classified; M62.81 Muscle weakness (generalized)
CPT/HCPCS: 97110 ×12; 97116; 97140; 97161; Q9967

== ENCOUNTER 2019-03-08 09:45 | Outpatient (RCR) | payer BC ==
[~2019-03-08 09:45] MED LIST changes: -IOPAMIDOL 200 MG/ML 20 ML VIAL IT ONE
== END 2019-04-06 ==
LOC: PT 09:45
PROVIDERS: ATTEND Specialist
DX: Z96.651 Presence of right artificial knee joint (principal); Z47.1 Aftercare following joint replacement surgery; M62.81 Muscle weakness (generalized); M25.561 Pain in right knee; M25.661 Stiffness of right knee, not elsewhere classified

== ENCOUNTER → 2020-04-20 | Day surgery (SDC) | payer BC ==
[2020-04-16 15:44] LABS: BASOPHILS # (AUTO) 0.1 (0.0-0.1); BASOPHILS % 0.7 % (0.0-1.0); EOSINOPHILS # (AUTO) 0.2 (0.0-0.4); EOSINOPHILS % 1.9 % (0.0-6.0); HEMATOCRIT 36.4 % (34.2-44.1); HEMOGLOBIN 11.5 g/dL (12.0-16.0); LYMPHOCYTES # (AUTO) 2.2 (1.0-3.2); LYMPHOCYTES % 24.1 % (18.0-39.1); MEAN CORPUSCULAR HGB CONC 31.6 g/dL (31-35); MEAN CORPUSCULAR VOLUME 88.8 fL (81-99); MONOCYTES # (AUTO) 0.9 (0.2-0.8); MONOCYTES % 9.6 % (4.4-11.3); NEUTROPHILS # (AUTO) 5.8 (2.1-6.9); NEUTROPHILS % 63.5 % (38.7-80.0); PLATELET COUNT 266 x10e3/uL (140-360); RED CELL DISTRIBUTION WIDTH 13.8 % (11.7-14.4)
[~2020-04-20] MED LIST changes: +FENTANYL CITRATE/PF 100MCG/2 ML INJ ONE; +GLUCAGON FOR INJ 1 MG VIAL ONE; +HYOSCYAMINE 0.125 MG TAB ONE; +LIDOCAINE HCL 2% LOCAL INJ 5 ML SDV VIAL INJ ONE; +METHOCARBAMOL750 MG PO; +MIDAZOLAM HCL 2 MG/2 ML VIAL ONE; +PROPOFOL IV EMULSION 10 MG/ML 20 ML VIAL ONE; +SPIRONOLACTONE25 MG PO
[2020-04-20 11:05] VITALS: BP 145/80
== END | disposition home or self-care (01) ==
LOC: OR 06:45
PROVIDERS: ATTEND Internal Medicine Gastroenterology
DX: Z12.11 Encounter for screening for malignant neoplasm of colon (principal); K21.9 Gastro-esophageal reflux disease without esophagitis; K59.09 Other constipation; I10 Essential (primary) hypertension; Z68.38 Body mass index [BMI] 38.0-38.9, adult; E11.9 Type 2 diabetes mellitus without complications; E78.5 Hyperlipidemia, unspecified; K57.30 Diverticulosis of large intestine without perforation or abscess without bleeding; G47.33 Obstructive sleep apnea (adult) (pediatric); K64.8 Other hemorrhoids; K63.89 Other specified diseases of intestine; Z80.0 Family history of malignant neoplasm of digestive organs; Z88.0 Allergy status to penicillin; Z86.010 Personal history of colon polyps; Z01.812 Encounter for preprocedural laboratory examination; Z20.828 Contact with and (suspected) exposure to other viral communicable diseases; Z79.84 Long term (current) use of oral hypoglycemic drugs
CPT/HCPCS: 36415 ×2; 45380; 82948; 85025; J1610; J2001; J2250; J2704; J3010; U0002; 45378

== ENCOUNTER → 2021-06-17 | Outpatient (CLI) | payer BC ==
[~2021-06-17] MED LIST changes: -FENTANYL CITRATE/PF 100MCG/2 ML INJ ONE; -GLUCAGON FOR INJ 1 MG VIAL ONE; -HYOSCYAMINE 0.125 MG TAB ONE; -LIDOCAINE HCL 2% LOCAL INJ 5 ML SDV VIAL INJ ONE; -MIDAZOLAM HCL 2 MG/2 ML VIAL ONE; -PROPOFOL IV EMULSION 10 MG/ML 20 ML VIAL ONE
== END ==
LOC: RAD 09:49
PROVIDERS: ATTEND Internal Medicine
DX: U09.9 Post COVID-19 condition, unspecified (principal)
CPT/HCPCS: 71046

== ENCOUNTER → 2021-07-29 | Outpatient (CLI) | payer BC ==
[~2021-07-29] MED LIST changes: +IOPAMIDOL 370 MG/ML 200 ML INFUS..BTL INJ ONE; +METOPROLOL TARTRATE 25 MG TAB ONE; +METOPROLOL TARTRATE INJ 1 MG/ML VIAL ONE; +SODIUM CHLORIDE 0.9% 100 ML ONE; +SODIUM CHLORIDE 0.9% 250ML 250 ML ONE; +SODIUM CHLORIDE 0.9% 500ML 500 ML ONE
[2021-07-29 09:03] LABS: CREATININE, SERUM 1.56 mg/dL (0.57-1.11)
== END ==
LOC: CT 07:46
PROVIDERS: ATTEND Internal Medicine Cardiovascular Disease
DX: I20.9 Angina pectoris, unspecified (principal); R94.39 Abnormal result of other cardiovascular function study
CPT/HCPCS: 36415; 75574; 82565; 84520; J7040; J7050 ×2; Q9967

== ENCOUNTER → 2022-09-29 | Day surgery (SDC) | payer BC ==
[2022-09-26 13:32] LABS: BASOPHILS # (AUTO) 0.1 (0.0-0.1); BASOPHILS % 0.7 % (0.0-1.0); EOSINOPHILS # (AUTO) 0.2 (0.0-0.4); EOSINOPHILS % 2.2 % (0.0-6.0); HEMATOCRIT 33.8 % (34.2-44.1); HEMOGLOBIN 10.6 g/dL (12.0-16.0); LYMPHOCYTES # (AUTO) 2.1 (1.0-3.2); LYMPHOCYTES % 23.8 % (18.0-39.1); MEAN CORPUSCULAR HEMOGLOBIN 27.5 pg (28-32); MEAN CORPUSCULAR HGB CONC 31.4 g/dL (31-35); MEAN CORPUSCULAR VOLUME 87.8 fL (81-99); MONOCYTES # (AUTO) 0.9 (0.2-0.8); MONOCYTES % 10.1 % (4.4-11.3); NEUTROPHILS # (AUTO) 5.4 (2.1-6.9); PLATELET COUNT 273 x10e3/uL (140-360); RED BLOOD COUNT 3.85 x10e6/uL (3.6-5.1); RED CELL DISTRIBUTION WIDTH 14.6 % (11.7-14.4)
[2022-09-26 13:58] LABS: ANION GAP 12.9 mmol/L (8-16); CALCIUM 9.2 mg/dL (8.4-10.2); CREATININE, SERUM 1.33 mg/dL (0.57-1.11); POTASSIUM 3.9 mmol/L (3.5-5.1)
[~2022-09-29] MED LIST changes: +BALANCED SALT SOLN (OPTH) 15 ML BTL IO ONE; +BUPIVACAINE HC 0.75% PF 10ML VIAL INJ ONE; +CLOPIDOGREL75 MG PO; +CYCLOPENTOLATE HCL 2% OPTH SOLN 2 ML BTL OP ONE; +EPINEPHRINE HCL 1:1000 1ML 1 MG/ML AMP ONE; +FENTANYL CITRATE/PF 100MCG/2 ML INJ ONE; -IOPAMIDOL 370 MG/ML 200 ML INFUS..BTL INJ ONE; +LABETALOL HCL 20 ML ONE; +LABETALOL HCL 5 MG/ML 20ML VIAL IV ONE; +LACTATED RINGER'S 1,000 ML ONE; +LIDOCAINE 2% /EPINEPHRINE 20 ML SDV INJ ONE; +LIDOCAINE HCL 2% LOCAL INJ 5 ML SDV VIAL INJ ONE; +LIDOCAINE HCL-PF 4% 40 MG/1 ML 5ML AMP ONE; +LOSARTAN-HCTZ1 EAC1 PO; -METOPROLOL TARTRATE 25 MG TAB ONE; -METOPROLOL TARTRATE INJ 1 MG/ML VIAL ONE; +PHENYLEPHRINE HCL 2 ML DROPS ONE; +POVIDONE IODINE 0.05% 0.05 % ML PO ONE; +POVIDONE IODINE 5% (OPTH) 30 ML BTL ONE; +PROPOFOL IV EMULSION 10 MG/ML 20 ML VIAL ONE; -SODIUM CHLORIDE 0.9% 100 ML ONE; -SODIUM CHLORIDE 0.9% 250ML 250 ML ONE; -SODIUM CHLORIDE 0.9% 500ML 500 ML ONE; +TOBRAMYCIN/DEXAMETHASONE(OPTH) 3.5 GM TUBE ONE
[2022-09-29 10:18] VITALS: TEMP 97.7
[2022-09-29 11:10] VITALS: BP 182/84; PULSE 65; RESP 18; O2SAT 97
== END | disposition home or self-care (01) ==
LOC: OR 07:57
PROVIDERS: ATTEND Ophthalmology
DX: H25.12 Age-related nuclear cataract, left eye (principal); G47.33 Obstructive sleep apnea (adult) (pediatric); E78.5 Hyperlipidemia, unspecified; K21.9 Gastro-esophageal reflux disease without esophagitis; E11.9 Type 2 diabetes mellitus without complications; I10 Essential (primary) hypertension; Z01.810 Encounter for preprocedural cardiovascular examination; Z01.812 Encounter for preprocedural laboratory examination; Z79.02 Long term (current) use of antithrombotics/antiplatelets; Z79.84 Long term (current) use of oral hypoglycemic drugs; Z79.899 Other long term (current) drug therapy
CPT/HCPCS: 36415 ×2; 66984; 80048; 82948; 85025; 93005; J0171; J2001 ×2; J2704; J3010; J3490; J7121; V2632

== ENCOUNTER → 2022-10-27 | Day surgery (SDC) | payer BC ==
[~2022-10-27] MED LIST changes: +HYDRALAZINE HCL 20 MG/ML VIAL ONE; -LABETALOL HCL 20 ML ONE; -LABETALOL HCL 5 MG/ML 20ML VIAL IV ONE; -LACTATED RINGER'S 1,000 ML ONE; -LIDOCAINE 2% /EPINEPHRINE 20 ML SDV INJ ONE; +MIDAZOLAM HCL 2 MG/2 ML VIAL ONE; +MOXIFLOXACIN HCL(OPTH) 3 ML BTL ONE; +SODIUM CHLORIDE 0.9% 1000ML 1,000 ML ONE; -TOBRAMYCIN/DEXAMETHASONE(OPTH) 3.5 GM TUBE ONE
[2022-10-27 13:38] VITALS: BP 167/74; PULSE 67; RESP 18; O2SAT 97
== END | disposition home or self-care (01) ==
LOC: OR 09:40
PROVIDERS: ATTEND Ophthalmology
DX: H25.11 Age-related nuclear cataract, right eye (principal); G47.33 Obstructive sleep apnea (adult) (pediatric); E11.9 Type 2 diabetes mellitus without complications; I10 Essential (primary) hypertension; E78.5 Hyperlipidemia, unspecified; K21.9 Gastro-esophageal reflux disease without esophagitis; G89.29 Other chronic pain; Z79.02 Long term (current) use of antithrombotics/antiplatelets; Z79.84 Long term (current) use of oral hypoglycemic drugs; Z79.899 Other long term (current) drug therapy
CPT/HCPCS: 36415; 66984; 82948; J0171; J0360; J2001; J2250; J2704; J3010; J7030; V2632